=== PATIENT | male | born 1980 | race Caucasian/White ===

== ENCOUNTER 2023-03-27 15:21 | Emergency (ER) | payer SELFPAY ==
[2023-03-27 16:04] LABS: Absolute Lymphocytes (CBC) 3.3 K/uL (0.7-4.9); Hematocrit 46.8 % (39.6-49.0); Lymphocytes % 19.7 % (15.3-44.8); MCV 86.3 fL (80-100); MPV 8.4 fL (7.6-11.3); Platelets 443 thou/uL (152-406); RBC Red Blood Cell Count 5.42 M/uL (4.33-5.43)
--- NOTE | 2023-03-27 16:30 | RAD REPORT ---
EXAM DESCRIPTION: Enzo Single View03/27/2023 3:55 pm CLINICAL HISTORY: syncope COMPARISON: No comparisons TECHNIQUE: Portable AP view of the chest. FINDINGS: The lungs are clear. No pneumothorax or effusion. The cardiomediastinal contours are unrem arkable. IMPRESSION: No acute cardiopulmonary process.
[2023-03-27 16:34] LABS: Bilirubin Direct 0.2 mg/dL (0-0.2); Bilirubin Indirect, Calculated 0.4 mg/dL (0.2-0.8); Bilirubin Total 0.6 mg/dL (0.2-1.0); Magnesium 2.2 mg/dL (1.6-2.4); Potassium 3.9 mEq/L (3.5-5.1); Protein, Total 8.3 g/dL (6.4-8.2)
[2023-03-27 17:00] LABS: Troponin High Sensitivity 12.4 (<58.9)
--- NOTE | 2023-03-27 18:17 | RAD REPORT ---
EXAM DESCRIPTION: CT - [id number] - 03/27/2023 5:28 pm CLINICAL HISTORY: SYNCOPE COMPARISON: No comparisons TECHNIQUE: Axial thin cut noncontrast CT images of the head were obtained. Axial thin cut noncontrast CT images of the cervical spine were obtained. Multiplanar reformatted images were generated and reviewed. All CT scans are performed using dose optimization technique as appropriate and may include automated exposure control or mA/KV adjustment according to patient size. FINDINGS: CT HEAD WITHOUT CONTRAST: No acute hemorrhage, hydrocephalus or extra-axial collection is identified.No areas of brain edema or midline shift. The paranasal sinuses and mastoids are clear.The calvarium is intact. Chronic appearing sequelae of right orbital floor fracture. CT CERVICAL SPINE WITHOUT CONTRAST: No fracture or subluxation.No prevertebral soft tissues swelling is identified. IMPRESSION: No acute traumatic intracranial or cervical spine findings.
--- NOTE | 2023-03-27 18:58 | EDPHYS ---
Physician Documentation [facility] Name: Linda Lemus Age: 43 yrs Sex: Male : 1980 Arrival Date: 03/27/2023 Time: 15:21 Bed 8 Private MD: ED Physician Christiano Pablo HPI: 03/27 20:53 This 43 yrs old Male presents to ER via EMS with complaints of Syncope. kdr 20:53 Patient states that for the past couple of days he has been working outside and kdr becoming more tired and exhausted from the heat exposure. Today he reports that he sat down to rest. Shortly thereafter he fell forward striking his head on the ground and had a syncopal episode. The exact details are unclear as this was an unwitnessed fall. Apparently someone around him did at some point become involved and called EMS to come get the patient. He was put in a c-collar. The patient had no focal complaint other than pain and tingling in his upper arms. Patient otherwise had a abrasion at the hairline on his forehead and no other apparent injuries.. Onset: The symptoms/episode began/occurred suddenly, just prior to arrival. Severity of symptoms: At their worst the symptoms were incapacitating in the emergency department the symptoms are unchanged. The patient has not experienced similar symptoms in the past. The patient has not recently seen a physician. Historical: - Allergies: 15:45 No Known Allergies; me1 - Home Meds: 15:45 None [Active]; me1 - PMHx: 15:45 Hypertensive disorder; me1 - PSHx: 15:45 Unable to Obtain; me1 - Immunization history:: Adult Immunizations unknown. - Social history:: Smoking status: unknown. ROS: 20:53 Constitutional: Negative for fever, chills, and weight loss, Eyes: Negative for injury, kdr pain, redness, and discharge, ENT: Negative for injury, pain, and discharge, Neck: Negative for injury, pain, and swelling, Cardiovascular: Negative for chest pain, palpitations, and edema, Respiratory: Negative for shortness of breath, cough, wheezing, and pleuritic chest pain, Abdomen/GI: Negative for abdominal pain, nausea, vomiting, diarrhea, and constipation, Back: Negative for injury and pain, : Negative for injury, bleeding, discharge, and swelling, MS/Extremity: Negative for injury and deformity, Psych: Negative for depression, anxiety, suicide ideation, homicidal ideation, and hallucinations, Allergy/Immunology: Negative for hives, rash, and allergies, Endocrine: Negative for neck swelling, polydipsia, polyuria, polyphagia, and marked weight changes, Hematologic/Lymphatic: Negative for swollen nodes, abnormal bleeding, and unusual bruising. 20:53 Skin: Positive for abrasion(s), of the top of head and forehead, Negative for cellulitis, diaphoresis, discoloration. 20:53 Neuro: Positive for Exam: 20:53 Constitutional: This is a well developed, well nourished patient who is awake, alert, kdr and in no acute distress. Eyes: Pupils equal round and reactive to light, extra-ocular motions intact. Lids and lashes normal. Conjunctiva and sclera are non-icteric and not injected. Cornea within normal limits. Periorbital areas with no swelling, redness, or edema. Neck: Trachea midline, no thyromegaly or masses palpated, and no cervical lymphadenopathy. Supple, full range of motion without nuchal rigidity, or vertebral point tenderness. No Meningismus. Chest/axilla: Normal chest wall appearance and motion. Nontender with no deformity. No lesions are appreciated. Cardiovascular: Regular rate and rhythm with a normal S1 and S2. No gallops, murmurs, or rubs. Normal PMI, no JVD. No pulse deficits. Respiratory: Lungs have equal breath sounds bilaterally, clear to auscultation and percussion. No rales, rhonchi or wheezes noted. No increased work of breathing, no retractions or nasal flaring. Abdomen/GI: Soft, non-tender, with normal bowel sounds. No distension or tympany. No guarding or rebound. No evidence of tenderness throughout. Back: No spinal tenderness. No costovertebral tenderness. Full range of motion. MS/ Extremity: Pulses equal, no cyanosis. Neurovascular intact. Full, normal range of motion. Neuro: Awake and alert, GCS 15, oriented to person, place, time, and situation. Cranial nerves II-XII grossly intact. Motor strength 5/5 in all extremities. Sensory grossly intact. Cerebellar exam normal. Normal gait. Psych: Awake, alert, with orientation to person, place and time. Behavior, mood, and affect are within normal limits. 20:53 Head/face: Noted is abrasion(s), that are mild, of the top of head and forehead. Vital Signs: 15:45 BP 122 / 108; Pulse 87; Resp 20; Temp 98.4; Pulse Ox 97% on R/A; Weight 95.25 kg; me1 Height 5 ft. 7 in. ; Pain 10/10; 16:23 BP 157 / 71; Pulse 97; Resp 18; Pulse Ox 98% on R/A; ld1 17:02 BP 139 / 107; Pulse 79; Resp 18; Pulse Ox 98% on R/A; ph 17:58 Pulse 66; Resp 18; Pulse Ox 100% on R/A; ld1 18:59 BP 141 / 87; Pulse 85; Resp 18; Pulse Ox 98% on R/A; ld1 19:45 BP 145 / 82; Pulse 75; Resp 16; Pulse Ox 100% on R/A; jb4 15:45 Body Mass Index 32.89 (95.25 kg, 170.18 cm) me1 15:45 Pain Scale: Adult me1 MDM: 18:57 Patient medically screened. kdr 20:53 Data reviewed: vital signs, nurses notes, radiologic studies. ED course: Patient stated kdr he could not get comfortable due to the discomfort in his upper distal extremities. Further he had tingling and numbness in his upper extremities distal to the elbow. His strength was slightly decreased symmetrically. 03/27 15:35 Order name: Basic Metabolic Panel; Complete Time: 17:01 [facility] 03/27 15:35 Order name: CBC with Diff; Complete Time: 16:31 [facility] 03/27 15:35 Order name: LFT's; Complete Time: 17:01 [facility] 03/27 15:35 Order name: Magnesium; Complete Time: 17:01 [facility] 03/27 15:35 Order name: Troponin HS; Complete Time: 17:01 [facility] 03/27 15:35 Order name: CPK; Complete Time: 17:01 [facility] 03/27 17:01 Order name: ETOH Level; Complete Time: 18:29 [facility] 03/27 15:35 Order name: XRAY Chest (1 view); Complete Time: 16:57 [facility] 03/27 17:02 Order name: CT Head C Spine; Complete Time: 18:29 [facility] 03/27 15:35 Order name: EKG; Complete Time: 15:35 kdr 03/27 15:35 Order name: Cardiac monitoring; Complete Time: 15:38 kdr 03/27 15:35 Order name: EKG - Nurse/Tech; Complete Time: 16:00 kdr 03/27 15:35 Order name: IV Saline Lock; Complete Time: 15:39 kdr 03/27 15:35 Order name: Labs collected and sent; Complete Time: 16:00 kdr 03/27 15:35 Order name: O2 Per Protocol; Complete Time: 15:39 kdr 03/27 15:35 Order name: O2 Sat Monitoring; Complete Time: 15:39 kdr Administered Medications: 15:42 Drug: NS 0.9% IV 1000 ml Route: IV; Rate: 1 bolus; Site: right antecubital; ld1 Disposition Summary: 03/27/23 18:57 Transfer Ordered Transfer Location: [facility] kdr Reason: Higher level of care kdr Condition: Fair kdr Problem: new kdr Symptoms: are unchanged kdr Accepting Physician: Dr. Herndon(03/27/23 19:56) jb4 Diagnosis - Neck Pain kdr - Paresthesia of skin - Tingling from elbow to finger tips bilaterally kdr - Weakness - Upper extremities from elbow distally to finger tips kdr Forms: - Medication Reconciliation Form kdr - SBAR form kdr Signatures: Dispatcher [employer] Christiano Dacosta MD MD kdr Alejandro Aponte RN RN jb4 Demetrius Cardoza RN RN bp Sims, Lauren, RN RN ld1 Yenny Peña RN RN me1 Corrections: (The following items were deleted from the chart) 19:56 18:57 Dr. Herndon kdr jb4
--- NOTE | 2023-03-27 18:58 | ER ---
Nurse's Notes [facility] Name: Linda Lemus Age: 43 yrs Sex: Male : 1980 Arrival Date: 03/27/2023 Time: 15:21 Bed 8 Private MD: Diagnosis: Neck Pain;Paresthesia of skin-Tingling from elbow to finger tips bilaterally;Weakness-Upper extremities from elbow distally to finger tips Presentation: 03/27 15:23 Chief complaint: EMS states: SYNCOPE AFTER HEAT EXPOSURE. Coronavirus screen: At this bp time, the client does not indicate any symptoms associated with coronavirus-19. Ebola Screen: No symptoms or risks identified at this time. Initial Sepsis Screen: Does the patient meet any 2 criteria? No. Patient's initial sepsis screen is negative. Does the patient have a suspected source of infection? No. Patient's initial sepsis screen is negative. Risk Assessment: Do you want to hurt yourself or someone else? Patient reports no desire to harm self or others. Onset of symptoms was March 27, 2023. 15:23 Method Of Arrival: EMS: [facility] bp 15:23 Acuity: ELMA 3 bp Triage Assessment: 15:23 General: Appears distressed, Behavior is cooperative, appropriate for age, agitated, bp anxious. Pain: Complains of pain in right arm and left arm. EENT: No deficits noted. Neuro: Reports a syncopal episode. Historical: - Allergies: 15:45 No Known Allergies; me1 - Home Meds: 15:45 None [Active]; me1 - PMHx: 15:45 Hypertensive disorder; me1 - PSHx: 15:45 Unable to Obtain; me1 - Immunization history:: Adult Immunizations unknown. - Social history:: Smoking status: unknown. Screenin:45 [facility] ED Fall Risk Assessment (Adult) History of falling in the last 3 months, me1 including since admission Yes- single mechanical fall (1 pt). Abuse screen: Denies threats or abuse. Nutritional screening: No deficits noted. Tuberculosis screening: No symptoms or risk factors identified. Assessment: 15:40 General: Appears uncomfortable, unkempt, well developed, well nourished, Behavior is me1 cooperative, appropriate for age, restless, Reports was working at [employer] and sat under a tree to take a break and doesn't remember anything else until EMS was there. States, "this isnt my first heatstroke.". Pain: Complains of pain in right arm and left arm Pain does not radiate. Pain currently is 10 out of 10 on a pain scale. Quality of pain is described as burning, tingling, Pain began suddenly, Is continuous, Aggravated by touch or movement. Neuro: Level of Consciousness is awake, alert, obeys commands, Oriented to person, place, time, situation, Appropriate for age. Cardiovascular: Capillary refill < 3 seconds Patient's skin is warm and dry. Respiratory: Respiratory effort is even, unlabored, Respiratory pattern is regular, symmetrical. Injury Description: Syncopal episode with LOC, bruise to forehead, c collar in place w/complaint of burning/tingling of 10/10 to BUE. 18:59 Reassessment: No changes from previously documented assessment. Patient states symptoms ld1 have not improved. 19:15 Reassessment: Patient appears in no apparent distress at this time. Patient and/or jb4 family updated on plan of care and expected duration. Pain level reassessed. Patient is alert, oriented x 3, equal unlabored respirations, skin warm/dry/pink. 19:51 Reassessment: Patient appears in no apparent distress at this time. Patient and/or jb4 family updated on plan of care and expected duration. Pain level reassessed. Patient is alert, oriented x 3, equal unlabored respirations, skin warm/dry/pink. Pt being transferred to receiving facility via EMS. Vital Signs: 15:45 BP 122 / 108; Pulse 87; Resp 20; Temp 98.4; Pulse Ox 97% on R/A; Weight 95.25 kg; me1 Height 5 ft. 7 in. ; Pain 10/10; 16:23 BP 157 / 71; Pulse 97; Resp 18; Pulse Ox 98% on R/A; ld1 17:02 BP 139 / 107; Pulse 79; Resp 18; Pulse Ox 98% on R/A; ph 17:58 Pulse 66; Resp 18; Pulse Ox 100% on R/A; ld1 18:59 BP 141 / 87; Pulse 85; Resp 18; Pulse Ox 98% on R/A; ld1 19:45 BP 145 / 82; Pulse 75; Resp 16; Pulse Ox 100% on R/A; jb4 15:45 Body Mass Index 32.89 (95.25 kg, 170.18 cm) me1 15:45 Pain Scale: Adult me1 ED Course: 15:23 Patient arrived in ED. bp 15:24 Christiano Pablo MD is Attending Physician. kdr 15:24 Triage completed. bp 15:25 Arm band placed on. bp 15:45 Patient has correct armband on for positive identification. Bed in low position. Call me1 light in reach. Side rails up X2. Provided Education on: POC, verbalized understanding . 15:45 No provider procedures requiring assistance completed. Maintain EMS IV. Good blood me1 return noted. Gauge \\T\\ site: 18 g. RAC. 15:51 Basic Metabolic Panel Sent. bc6 15:51 CBC with Diff Sent. bc6 15:51 LFT's Sent. bc6 15:51 Magnesium Sent. bc6 15:51 Troponin HS Sent. bc6 15:56 XRAY Chest (1 view) In Process Unspecified. EDMS 16:54 Brianna Conklin, RN is Primary Nurse. ph 17:20 ETOH Level Sent. me1 17:26 CT Head C Spine In Process Unspecified. EDMS Administered Medications: 15:42 Drug: NS 0.9% IV 1000 ml Route: IV; Rate: 1 bolus; Site: right antecubital; ld1 Medication: 15:45 VIS not applicable for this client. me1 Outcome: 18:57 ER care complete, transfer ordered by . kdr 19:55 Transferred by ground EMS to [facility]. jb4 19:55 Condition: stable 19:55 Discharge instructions given to patient, Instructed on the need for transfer, Demonstrated understanding of instructions. 19:56 Patient left the ED. jb4 Signatures: Dispatcher [employer] EDMS Christiano Pablo MD MD kdr Brianna Conklin, RN Alejandro Swain ph, RN RN jb4 Demetrius Cardoza RN RN Salud Cox, SHANA RN ld1 Lavonne Dawkins 6 Yenny Peña RN RN me1
[2023-03-27 20:02] VITALS: TEMP 98.4
[2023-03-27 20:07] VITALS: BP 145/82; O2SAT 100
--- NOTE | 2023-03-28 18:08 | EKG ---
Test Date: 2023-03-27 Test Time: 15:48:36 [employer]: Sánchez BENAVIDES MEASUREMENT RESULTS: Intervals: Rate: 87 CA: 142 QRSD: 90 QT: 412 QTc: 495 [place]: P: 53 CA: 142 QRS: 31 T: 80 INTERPRETIVE STATEMENTS: Normal sinus rhythm Nonspecific T wave abnormality Prolonged QT Abnormal ECG Compared to ECG 03/28/2005 18:15:00 T-wave abnormality now present Prolonged QT interval now present Sinus bradycardia no longer present ST (T wave) deviation no longer present Electronically Signed On 03-28-23 18:07:19 CDT by Crow Monique
== END 2023-03-27 19:56 | disposition short-term general hospital (02) ==
LOC: ER 15:21
DX: M54.2 Cervicalgia (principal); R20.2 Paresthesia of skin; R53.1 Weakness; S00.81XA Abrasion of other part of head, initial encounter
CPT/HCPCS: 36415; 70450; 71045; 72125; 80048; 80076; 82077; 82550; 83735; 84484; 85025; 93005; 99285